=== PATIENT | male | born 1960 | race Caucasian/White ===

== ENCOUNTER 2020-09-21 14:48 | Outpatient (CLI) | payer BC, SELFPAY ==
--- NOTE | ~2020-09-21 | US_ITS ---
EXAMINATION: US carotid duplex BI EXAM DATE: 09/21/2020 15:32 INDICATION: Bilateral carotid bruits. TECHNIQUE: Grayscale, color and pulsed Doppler images of the cervical carotid arteries were obtained . The degree of vessel stenosis is placed in one of the following categories: normal, <50% stenosis, 50-69% stenosis, >=70% stenosis but less than near-occlusion, near-occlusion, or occlusion. Note that percent stenosis relative to normal distal artery lumen diameter is indirectly measured from velocit y measurements as described by Rc, et al. Radiology 2003; 229:[id number]. There is no prior study fo r comparison. FINDINGS: RIGHT SIDE: Right common carotid artery peak systolic velocity (PSV in cm/s): 163 Right bulb/internal carotid artery peak systolic velocity (PSV in cm/s): 85 Right internal carotid artery end diastolic velocity (EDV in cm/s): 26 Right ICA/CCA peak systolic ratio: 0.5 Right external carotid artery peak systolic velocity (PSV in cm/s): 121 Right vertebral artery antegrade flow: yes There is no focal plaque identified. LEFT SIDE: Left common carotid artery peak systolic velocity (PSV in cm/s): 173 Left bulb/internal carotid artery peak systolic velocity (PSV in cm/s): 85 Left internal carotid artery end diastolic velocity (EDV in cm/s): 31 Left ICA/CCA peak systolic ratio: 0.5 Left external carotid artery peak systolic velocity (PSV in cm/s): 128 Left vertebral artery antegrade flow: yes There is no focal plaque identified. IMPRESSION: 1. Normal right internal carotid artery. 2. Normal left internal carotid artery. > Reviewed, dictated and finalized at location G.
== END 2020-09-21 14:49 | disposition home or self-care (01) ==
LOC: ANHIMG 14:52
PROVIDERS: PCP Family Medicine; Visit Provider Internal Medicine Cardiovascular Disease
DX: R09.89 Other specified symptoms and signs involving the circulatory and respiratory systems (principal)
CPT/HCPCS: 93880

== ENCOUNTER → 2021-05-31 13:43 | Outpatient (CLI) | payer BC, SELFPAY ==
--- NOTE | ~2021-05-31 | XR_ITS ---
EXAMINATION: XR hand LT min 3V DATE: 05/31/2021 13:58 INDICATION: Left hand pain post fall one week prior TECHNIQUE: Posteroanterior, oblique and lateral views of the left hand were obtained. COMPARISON: None. FINDINGS: Diffuse osteopenia. Bone alignment is normal. No fracture. Mild to moderate polyarticular osteoarthri tis at the first carpometacarpal and multiple interphalangeal joints with distal predominance. Soft t issues are unremarkable. IMPRESSION: 1. Mild to moderate polyarticular osteoarthritis. No acute osseous abnormality. Reviewed, dictated and finalized at location A.
== END ==
PROVIDERS: PCP Nurse Practitioner Family; Visit Provider Nurse Practitioner
DX: M19.042 Primary osteoarthritis, left hand (principal)
CPT/HCPCS: 73130

== ENCOUNTER 2022-08-13 09:00 | Outpatient (CLI) | payer BC, SELFPAY ==
[2022-08-13 19:26] LABS: Basophils Percent Auto 0.9 % (0.2-1.2); Eosinophils Percent Auto 0.9 % (0-4.4); Hematocrit 40.7 % (42.0-52.0); Hemoglobin 13.1 g/dL (14.0-18.0); Immature Granulocyte Absolute 0.01 K/mm3 (0.00-0.031); Immature Granulocyte Percent A 0.2 % (0-0.5); Lymphocytes Absolute Auto 1.16 K/mm3 (0.9-3.2); Lymphocytes Percent Auto 26.8 % (18.3-44.2); Mean Corpuscular HGB Conc 32.2 g/dl (32-36); Mean Corpuscular Hemoglobin 30.7 pg (26-34); Mean Corpuscular Volume 95.3 fl (80-100); Mean Platelet Volume 10.8 fl (7.4-10.4); Monocytes Absolute Auto 0.4 K/mm3 (0.1-0.6); Neutrophils Absolute Auto 2.7 K/mm3 (1.3-6.7); Neutrophils Percent Auto 62.2 % (45.5-73.1); Platelet Count Result 165 k/mm3 (150-375); Red Blood Count 4.27 M/mm3 (4.6-6.20); Red Cell Distribution Width 12.7 % (11.5-14.5); White Blood Count 4.3 K/mm3 (4.5-10.0)
[2022-08-13 21:04] LABS: Alanine Aminotransferase 34 U/L (6-50); Albumin Level 4.3 g/dL (3.5-5.1); Anion Gap 5 mmol/L (8-16); Aspartate Amino Transferase 49 U/L (17-59); Blood Urea Nitrogen 23 mg/dL (9-20); Calcium 8.3 mg/dL (8.4-10.2); Carbon Dioxide 28 mmol/L (22-30); Chloride 104 mmol/L (98-107); Cholesterol 159 mg/dL (0-200); Estimated Glomerular Filt Rate > 60; Glucose 89 mg/dL (65-110); HDL Direct 38 mg/dL; Sodium 137 mmol/L (137-145); Triglycerides 66 mg/dL (<150)
[2022-08-13 21:05] LABS: Alkaline Phosphatase 53 U/L (38-126)
[2022-08-13 21:16] LABS: LDL Cholesterol Direct 100 mg/dL
[2022-08-13 21:36] LABS: Prostate Specific Antigen 4.9 ng/mL (< OR = 4.0)
[2022-08-13 21:39] LABS: Hemoglobin A1C 5.5 % (<5.7)
== END 2022-08-13 09:01 | disposition home or self-care (01) ==
LOC: ANHGOSHLAB 09:03
PROVIDERS: PCP Nurse Practitioner Family; Visit Provider Nurse Practitioner Family
DX: I10 Essential (primary) hypertension (principal); R97.20 Elevated prostate specific antigen [PSA]; Z12.5 Encounter for screening for malignant neoplasm of prostate; Z13.29 Encounter for screening for other suspected endocrine disorder; Z13.220 Encounter for screening for lipoid disorders
CPT/HCPCS: 36415; 80053; 80061; 83036; 84153; 84443; 85025; G0103

== ENCOUNTER 2023-08-17 08:49 | Outpatient (CLI) | payer BC, SELFPAY ==
[2023-08-17 14:57] LABS: Basophils Percent Auto 0.5 % (0.2-1.2); Eosinophils Absolute Auto 0.1 K/mm3 (0-0.3); Eosinophils Percent Auto 0.9 % (0-4.4); Hematocrit 43.1 % (42.0-52.0); Hemoglobin 13.7 g/dL (14.0-18.0); Immature Granulocyte Absolute 0.03 K/mm3 (0.00-0.031); Immature Granulocyte Percent A 0.5 % (0-0.5); Lymphocytes Absolute Auto 1.44 K/mm3 (0.9-3.2); Lymphocytes Percent Auto 26.3 % (18.3-44.2); Mean Corpuscular HGB Conc 31.8 g/dl (32-36); Mean Corpuscular Hemoglobin 30.4 pg (26-34); Mean Corpuscular Volume 95.6 fl (80-100); Mean Platelet Volume 10.6 fl (7.4-10.4); Monocytes Absolute Auto 0.6 K/mm3 (0.1-0.6); Neutrophils Absolute Auto 3.4 K/mm3 (1.3-6.7); Neutrophils Percent Auto 61.8 % (45.5-73.1); Platelet Count Result 181 k/mm3 (150-375); Red Blood Count 4.51 M/mm3 (4.6-6.20); Red Cell Distribution Width 13.1 % (11.5-14.5); White Blood Count 5.5 K/mm3 (4.5-10.0)
[2023-08-17 16:24] LABS: Alanine Aminotransferase 23 U/L (6-50); Albumin Level 4.4 g/dL (3.5-5.1); Alkaline Phosphatase 61 U/L (38-126); Anion Gap 5 mmol/L (4-12); Aspartate Amino Transferase 53 U/L (17-59); Bilirubin,Total 0.9 mg/dL (0.2-1.3); Blood Urea Nitrogen 19 mg/dL (9-20); Calcium 8.9 mg/dL (8.4-10.2); Carbon Dioxide 28 mmol/L (22-30); Chloride 104 mmol/L (98-107); Cholesterol 180 mg/dL (0-200); Estimated Glomerular Filt Rate > 60; Glucose 91 mg/dL (65-110); HDL Direct 47 mg/dL; Potassium 4.8 mmol/L (3.4-5.0); Sodium 137 mmol/L (137-145); Triglycerides 61 mg/dL (<150)
[2023-08-17 16:35] LABS: LDL Cholesterol Direct 109 mg/dL
== END 2023-08-17 08:50 | disposition home or self-care (01) ==
LOC: ANHGOSHLAB 08:51
PROVIDERS: PCP Nurse Practitioner Family; Visit Provider Student in an Organized Health Care Education/Training Program
DX: Z13.0 Encounter for screening for diseases of the blood and blood-forming organs and certain disorders involving the immune mechanism (principal); Z13.29 Encounter for screening for other suspected endocrine disorder; I10 Essential (primary) hypertension
CPT/HCPCS: 36415; 80053; 80061; 84443; 85025

== ENCOUNTER 2024-01-07 09:09 | Outpatient (CLI) | payer BC, SELFPAY ==
--- NOTE | ~2024-01-07 | XR_ITS ---
XR shoulder LT min 2V Ordering provider: Yasmani Fernandez APRN History: . M25.512 - Pain in left shoulder . Comparison: None. FINDINGS: BONES: No acute fracture or dislocation. JOINT SPACES: The acromioclavicular joint is normal. The glenohumeral joint is normal. SOFT TISSUES: Normal. IMPRESSION: No acute osseous abnormality left shoulder. Reviewed, dictated and finalized at location A.
== END 2024-01-07 09:10 | disposition home or self-care (01) ==
LOC: MICIMG 09:12
PROVIDERS: PCP Student in an Organized Health Care Education/Training Program; Visit Provider Student in an Organized Health Care Education/Training Program
DX: M25.512 Pain in left shoulder (principal)
CPT/HCPCS: 73030

== ENCOUNTER 2024-03-16 12:49 | Outpatient (CLI) | payer BC, SELFPAY ==
--- NOTE | ~2024-03-16 | MR_ITS ---
MRI of the left shoulder Technique: Axial proton-density fat-sat images, coronal proton density fat-sat and T2 fat-sat images, and sagittal T1-weighted and T2 fat-sat images were acquired. Clinical History: Rotator cuff tear Findings: There is moderate AC joint degenerative change, bony productive change of the distal clavic le and acromion. Coracoclavicular, coracoacromial, and coracohumeral ligaments appear intact. There are complete, full-thickness tears involving the entirety of the supraspinatus and infraspinatu s tendons. Humeral head is high riding. Subscapularis tendon appears to be intact, with severe tendin osis. Tendon of long head of the biceps is intact, with intra-articular tendinosis. No definite labral tear seen. Inferior glenohumeral ligament is intact. There are small glenohumeral joint effusion, with fluid pas sing through the rotator cuff defect into the subacromial/subdeltoid bursa. There is probable extensi ve mild to moderate chondral malacia the glenohumeral joint. No definite muscle atrophy or edema. Impression: Complete, full-thickness tears involving entire supraspinatus and infraspinatus tendons. No definite muscle atrophy or edema. High riding humeral head with moderate degenerative change at the AC joint. Reviewed, dictated and finalized at [facility]. [employer] Impression: Complete, full-thickness tears involving entire supraspinatus and infraspinatus tendons. No definite muscle atrophy or edema. High riding humeral head with moderate degenerative change at the AC joint.
== END 2024-03-16 12:50 | disposition home or self-care (01) ==
PROVIDERS: PCP Physician Assistant Surgical; Visit Provider Physician Assistant Surgical
DX: S46.812A Strain of other muscles, fascia and tendons at shoulder and upper arm level, left arm, initial encounter (principal); X58.XXXA Exposure to other specified factors, initial encounter; M19.012 Primary osteoarthritis, left shoulder; M89.8X2 Other specified disorders of bone, upper arm; M75.102 Unspecified rotator cuff tear or rupture of left shoulder, not specified as traumatic
CPT/HCPCS: 73221

== ENCOUNTER 2024-03-30 00:59 | Day surgery (SDC) | payer BC, SELFPAY ==
[2024-01-27 09:37] VITALS: BMI 25.0
[2024-03-15 11:33] VITALS: BMI 25.0
[2024-03-30] MEDS: LACTATED RINGERS 1,000 ML 150 ML IV CONT (11:05)
--- NOTE | 2024-03-30 11:11 | WPDANESEPPF ---
Anes - Initial Pre Proc Eval Procedure: Operation Date: 03/30/24 14:00 Proposed Procedures p Screening Colonoscopy - Sean Spencer MD Date/Time: 03/30/24 11:11 Surgeon: Sean Spencer MD Pre Op Diagnosis: neoplasm screening Patient Data Age: 64 Gender: M Height: 1.83 m Weight: 83.5 kg Allergies Allergy/AdvReac Type Severity Reaction Status Date / Time No Known Allergies Allergy Unknown Verified 03/30/24 10:57 Home Medications ?Medication ?Instructions ?Recorded ?Confirmed ?Type multivitamin with minerals (Daily 1 tablet PO DAILY 01/06/19 03/30/24 History Multivitamin-Minerals tablet) hydrocortisone 2.5 % topical cream 1 applic RECTAL DAILY PRN 10/24/20 03/21/24 Rx with perineal applicator hemorrhoids #30 grams finasteride 5 mg tablet 5 mg PO DAILY 06/11/21 03/30/24 History sildenafil 50 mg tablet (Viagra) 50 mg PO DAILY PRN sexual activity 08/13/21 03/21/24 Rx #30 tabs loratadine 10 mg tablet 10 mg PO DAILY 02/11/22 03/30/24 History aspirin 81 mg tablet,delayed 81 mg PO DAILY #90 tabs 06/09/22 03/30/24 Rx release (Adult Low Dose Aspirin) fluticasone propionate 50 1 spray intranasal DAILY #16 grams 11/14/22 03/30/24 Rx mcg/actuation nasal spray,suspension (Flonase Allergy Relief) lisinopril 40 mg tablet 40 mg PO DAILY #90 tabs 12/05/22 03/30/24 Rx diclofenac sodium 1 % topical gel 4 g topical BID PRN knee pain #100 08/17/23 03/21/24 Rx (Arthritis Pain (diclofenac)) grams albuterol sulfate 90 mcg/actuation 2 inh inhalation Q4H PRN Shortness 01/27/24 03/21/24 History aerosol inhaler Of Breath Or Wheezing Patient hx anesthesia problems: none Family hx anesthesia problems: none Results Review: All pre-operative results and documents have been reviewed as part of the pre-operative evaluation. [facility] Past Medical History Medical History Pulmonic stenosis Follows w/Dr Uppstrom Normal colonoscopy (~2013) hyperplastic polyp removed Amputation of right index finger (~2018) right 2nd finger at PIP joint d/t infection Wrist fracture History of anal fissures Elevated PSA neg biopsy Asthma Hypertension Surgical History Surgical History History of rhinoplasty (~1995) Family History Family History Father Hypertension Other Family history of cardiovascular disease Family history of emphysema Social History Social History Social History: Caffeine-coffee/tea Smoking status: Never smoker Alcohol intake: current Alcohol use details: socially Substance use: never Substance use type: does not use Do You Feel Safe in your Home?: Yes Lack of Transportation: No Lack of Food: Never True Current Housing: I Have Housing Concerned About Future Housing: No Difficulty Paying Gas/Electric Bills: No Difficulty Paying for Meds: No Currently Unemployed: No Education: Master's Degree or Higher Difficulty w/ Childcare or Family Care: No Living arrangements: with family Spiritual care concerns: No Anes - Eval Final PreProcedure Day of Procedure 03/30/24 11:11 Patient weight: normal Heart: regular rate and rhythm Lungs: clear to auscultation and normal air movement Airway: Mallampati scale class II Neurological: alert and oriented Last oral intake: >/= 8 hours ASA classification: III Emergent: no Anesthetic plan: proceed Anesthesia type and monitoring: general GIVS and standard monitoring Results Review: All pre-operative results and documents have been reviewed as part of the pre-operative evaluation. Informed Consent: The patient's anesthetic plan and its attendant risks and benefits were discussed with the patient/family/POA. Questions were solicited and answers provided to the satisfaction of the patient/family/POA.
--- NOTE | 2024-03-30 11:38 | PM.HPGS ---
History of Present Illness History of Present Illness Consent: Risks, benefits, and alternatives have been discussed and questions answered. Patient agrees to proceed with procedure. Chief complaint: neoplasm screening Narrative: Theo Mcdonald is a 64 year old male here for screening colonoscopy, last one 2013 Review of Systems Review of Systems: All systems reviewed & are unremarkable except as noted in HPI and below PMFSH Past Medical History Medical History Pulmonic stenosis Follows w/Dr Honeycutt Normal colonoscopy (~2013) hyperplastic polyp removed Amputation of right index finger (~2018) right 2nd finger at PIP joint d/t infection Wrist fracture History of anal fissures Elevated PSA neg biopsy Asthma Hypertension Surgical History Surgical History History of rhinoplasty (~1995) Family History Family History Father Hypertension Other Family history of cardiovascular disease Family history of emphysema Social History Social History Social History: Caffeine-coffee/tea Smoking status: Never smoker Alcohol intake: current Alcohol use details: socially Substance use: never Substance use type: does not use Do You Feel Safe in your Home?: Yes Lack of Transportation: No Lack of Food: Never True Current Housing: I Have Housing Concerned About Future Housing: No Difficulty Paying Gas/Electric Bills: No Difficulty Paying for Meds: No Currently Unemployed: No Education: Master's Degree or Higher Difficulty w/ Childcare or Family Care: No Living arrangements: with family Spiritual care concerns: No Meds Home Medications and Allergies Home Medications ?Medication ?Instructions ?Recorded ?Confirmed ?Type multivitamin with minerals (Daily 1 tablet PO DAILY 01/06/19 03/30/24 History Multivitamin-Minerals tablet) hydrocortisone 2.5 % topical cream 1 applic RECTAL DAILY PRN 10/24/20 03/21/24 Rx with perineal applicator hemorrhoids #30 grams finasteride 5 mg tablet 5 mg PO DAILY 06/11/21 03/30/24 History sildenafil 50 mg tablet (Viagra) 50 mg PO DAILY PRN sexual activity 08/13/21 03/21/24 Rx #30 tabs loratadine 10 mg tablet 10 mg PO DAILY 02/11/22 03/30/24 History aspirin 81 mg tablet,delayed 81 mg PO DAILY #90 tabs 06/09/22 03/30/24 Rx release (Adult Low Dose Aspirin) fluticasone propionate 50 1 spray intranasal DAILY #16 grams 11/14/22 03/30/24 Rx mcg/actuation nasal spray,suspension (Flonase Allergy Relief) lisinopril 40 mg tablet 40 mg PO DAILY #90 tabs 12/05/22 03/30/24 Rx diclofenac sodium 1 % topical gel 4 g topical BID PRN knee pain #100 08/17/23 03/21/24 Rx (Arthritis Pain (diclofenac)) grams albuterol sulfate 90 mcg/actuation 2 inh inhalation Q4H PRN Shortness 01/27/24 03/21/24 History aerosol inhaler Of Breath Or Wheezing Allergies Allergy/AdvReac Type Severity Reaction Status Date / Time No Known Allergies Allergy Unknown Verified 03/30/24 10:57 Exam Const: General: comfortable and no acute distress HENMT: Face/Nose/Sinus: Normal nares present Eyes: General: appearance normal, both eyes and all related structures Neck: Neck: no JVD Resp: Auscultation: clear to auscultation bilaterally Cardio: Rate: regular rate Rhythm: regular rhythm GI: Inspection: non-distended GI Palp: Yes Soft to palpation Skin: General skin exam: normal color Neuro: General: gait normal Speech: normal speech Extrem: General: normal to inspection Psych: Mental Status: mental status grossly normal Assessment and Plan Assessment and plan (1) Screening for colon cancer: Code(s): Z12.11 - Encounter for screening for malignant neoplasm of colon Status: Acute Assessment and Plan: colonoscopy
[2024-03-30 11:50] VITALS: BP 97/60; PULSE 80; RESP 16; O2SAT 97
[2024-03-30 12:00] VITALS: BP 101/65; PULSE 74; RESP 19; O2SAT 98
[2024-03-30 12:10] VITALS: BP 132/77; PULSE 74; RESP 17; O2SAT 99
[2024-03-30 12:20] VITALS: BP 108/65; PULSE 69; RESP 20; O2SAT 99
--- OUTSIDE RECORDS SUMMARY | 2024-03-31 20:59 | XMS_ITS ---
Author Organization [facility] Address [address] [place] [address] Care Team Providers Care Courtroom Clerk Name Role Phone Teeteemaría Solomon Primary Care Provider Chanda Arriaga Unavailable [phone] Allergies No Known Allergies Results Component Value Reference Range Notes Spirometry Reviewed date:03/29/2024 11:27:31 AM Interpretation: Performing Lab: Notes/Report: SpiroPreBronchodilator_FVC 3.86 SpiroPostBronchodilator_FEF25_75 0 SpiroPreBronchodilator_FEF25_75 2.23 SpiroPreBronchodilator_FEV1 2.86 SpiroPrecentPredictionPost_FEF25_75 0 SpiroPrecentPredictionPost_FEV1 0 SpiroPrecentPredictionPost_FEV1_OVER_FVC 0 SpiroPrecentPredictionPost_FVC 0 SpiroPrecentPredictionPre_FEF25_75 66.4 SpiroPrecentPredictionPre_FEV1 75.9 SpiroPrecentPredictionPre_FEV1_OVER_FVC 96.8 SpiroPrecentPredictionPre_FVC 78.6 SpiroPredicted_FEF25_75 3.36 SpiroPreBronchodilator_FEV1_OVER_FVC 74.24 SpiroPreBronchodilator_PEF 7.19 SpiroPostBronchodilator_FVC 0 SpiroPostBronchodilator_FEV1 0 SpiroPostBronchodilator_FEV1_OVER_FVC 0 SpiroPostBronchodilator_PEF 0 SpiroPredicted_FVC 4.91 SpiroPredicted_FEV1 3.77 SpiroPredicted_FEV1_OVER_FVC 76.68 SpiroPredicted_PEF 8.89 REASON FOR VISIT Asthma follow-up - recent flare, but overall well controlled with Breo, Allergic rhinitis follow-up- improvement with SCIT, Flonase and cetirizine, Medications Medication SIG (Take, Route, Frequency, Duration) Notes Start Date End Date Status Breo Ellipta 200 MCG-25 MCG/INH 1 PUFF(S) INHALED ONCE A DAY for 90 days *Please review and pick correct strength-formula tion from [employer] options. If intended option is not shown, discontinue and re-order from Quick Search* Active SIT (TRADITIONAL) variable per schedule SC per schedule Active AUVI -Q 0.3 mg 0.3 mg intramuscularly once for 1 dose(s) Active CLARITIN 10 mg 1 tab(s) orally once a day Active OLOPATADINE OPHTHALMIC 0.1% place 1 drop into affected eye(s) twice daily in each affected eye Qday for 30 days Active Amoxicillin-Pot Clavulanate 875-125 MG 1 tablet Orally every 12 hrs for 7 days 09/29/2023 Not-Taking Triamcinolone Acetonide 0.1 % 1 application Externally Twice a day for 30 days 03/29/2024 Active Flonase Allergy Relief 50 MCG/ACT 2 sprays Nasally Once a day for 90 days 09/29/2023 Not-Taking Triamcinolone Acetonide 0.1 % APPLY TO AFFECTED AREA TOPICALLY 3 TIMES A DAY 90 DAYS for 30 Not-Taking Auvi-Q 0.3 MG/0.3ML 0.3 mg intramuscularly once for 1 dose(s) Active Flonase Allergy Relief 50 MCG/ACT 2 spray(s) intranasally once a day for 90 days Active Claritin 10 MG 1 tab(s) orally once a day Active PROAIR HFA 90 MCG/INH 2 PUFF(S) INHALED Q4-6 HOURS, PRN AND PER THE ASTHMA ACTION PLAN for 30 DAY(S) *Please review for potential replacement for e-prescription and drug interaction check* Not-Taking Lisinopril 20 MG 1 tab(s) orally once a day for 30 day(s) Active Flonase Allergy Relief 50 MCG/ACT 2 spray(s) intranasally once a day for 90 days Not-Taking Albuterol Sulfate HFA 108 (90 Base) MCG/ACT 2 puffs as needed Inhalation every 4 hrs for 30 days Active Triamcinolone Acetonide 0.1 % 1 giovanna applied topically 3 times a day for 90 days Active Azelastine HCl 137 MCG/SPRAY 2 sprays in each nostril Nasally Twice a day for 30 days Active Olopatadine HCl 0.1 % place 1 drop into affected eye(s) twice daily in each affected eye Qday for 30 days Active TRIAMCINOLONE ACETONIDE TOPICAL 0.1% 1 giovanna applied topically 3 times a day for 90 days Not-Taking Social History Tobacco Use: Social History Observation Description Date Details (start date - stop date) Never Smoker NA - NA Smoking Smart Form: Question Answer Notes Are you a: never smoker Tobacco Control (Standard) Question Answer Notes Tobacco use: Nonsmoker Vital Signs Blood pressure systolic 143 mm Hg 03/29/19 25 Blood pressure diastolic 74 mm Hg 025 Oximetry 100 % 03/29/2024 Height 72 in 03/29/2024 Weight 179.2 lbs 03/29/2024 BMI 24.3 kg/m2 03/29/2024 Encounters Encounter Location Date Provider Diagnosis [facility] [address] [address] 03/29/2024 Chanda Singh Mild persistent asthma, uncomplicated J45.30 ; Allergic rhinitis due to pollen J30.1 ; Other chronic allergic conjunctivitis H10.45 ; Allergic rhinitis due to animal (cat) (dog) hair and dander J30.81 ; Other allergic rhinitis J30.89 and Unspecified contact dermatitis due to plants, except food L25.5 Assessments Encounter Date Diagnosis (ICD Code) Assessment Notes Treatment Notes Treatment Clinical Notes Section Notes 03/29/2024 Mild persistent asthma, uncomplicated (ICD-10 - J45.30) Theo appears to have allergen induced asthma which also flares while sick. ACT 23 and well controlled with Breo outsie of recent flare. Spirometry today is improved from prior spirometry but shows signs of obstruction. Full PFTs 09/2016 showed obstruction and non significant improvement post bronchodilator. Continue Breo and prn albuterol. 03/29/2024 Allergic rhinitis due to pollen (ICD-10 - J30.1) Theo clearly suffers from atopic disease based upon history and our prior skin testing. Accordingly, we have introduced a new, aggressive medication regimen, discussed nasal washes and allergy-specific avoidance measures. He is tolerating SCIT well without large local or systemic symptoms and has overall seen much improvement in nasal congestion, rhinorrhea, and frequency of sinusitis. He has completed over 5 years of therapy and would like to discontinue since vials are now complete. 03/29/2024 Other chronic allergic conjunctivitis (ICD-10 - H10.45) Given ocular signs and symptoms, I strongly encouraged allergy avoidance measures, medications including intraocular antihistamine/mas t cell stabilizer, PRN 03/29/2024 Allergic rhinitis due to animal (cat) (dog) hair and dander (ICD-10 - J30.81) 03/29/2024 Other allergic rhinitis (ICD-10 - J30.89) 03/29/2024 Unspecified contact dermatitis due to plants, except food (ICD-10 - L25.5) Theo has a history of frequent poison shandra in the summer due to yard work. Continue prn triamcinolone 03/29/2024 Other Plan Of Treatment Medication Medication Name Sig Start Date Stop Date Notes Breo Ellipta 200 MCG-25 MCG/INH 1 PUFF(S) INHALED ONCE A DAY for 90 days *Please review and pick correct strength-formulatio n from [employer] options. If intended option is not shown, discontinue and re-order from Quick Search* SIT (TRADITIONAL) variable per schedule SC per schedule AUVI -Q 0.3 mg 0.3 mg intramuscular ly once for 1 dose(s) CLARITIN 10 mg 1 tab(s) orally once a day OLOPATADINE OPHTHALMIC 0.1% place 1 drop into affected eye(s) twice daily in each affected eye Qday for 30 days Triamcinolone Acetonide 0.1 % 1 application Externally Twice a day for 30 days 03/29/2024 Albuterol Sulfate HFA 108 (90 Base) MCG/ACT 2 puffs as needed Inhalation every 4 hrs for 30 days Azelastine HCl 137 MCG/SPRAY 2 sprays in each nostril Nasally Twice a day for 30 days Treatment Notes Assessment Notes Mild persistent asthma, uncomplicated Theo appears to have allergen induced asthma which also flares while sick. ACT 23 and well controlled with Breo outsie of recent flare. Spirometry today is improved from prior spirometry but shows signs of obstruction. Full PFTs 09/2016 showed obstruction and non significant improvement post bronchodilator. Continue Breo and prn albuterol. Allergic rhinitis due to pollen Theo clearly suffers from atopic disease based upon history and our prior skin testing. Accordingly, we have introduced a new, aggressive medication regimen, discussed nasal washes and allergy-specific avoidance measures. He is tolerating SCIT well without large local or systemic symptoms and has overall seen much improvement in nasal congestion, rhinorrhea, and frequency of sinusitis. He has completed over 5 years of therapy and would like to discontinue since vials are now complete. Other chronic allergic conjunctivitis Given ocular signs and symptoms, I strongly encouraged allergy avoidance measures, medications including intraocular antihistamine/mast cell stabilizer, PRN Unspecified contact dermatit is due to plants, except food Theo has a history of frequent poison shandra in the summer due to yard work. Continue prn triamcinolone Next Appt Details Follow Up: 6 Months, Reason: Spirometry/Flow Volume Loop Provider Name:Chanda mccarty, 09/20/2024 10:15:00 AM, [address] [facility], [address], [address], Procedure Notes * Category Sub-Category Detail Notes SCIT Traditional Aeroallergen Schedul e Administration:: Full dosing administered per SOP and AAIC's titration schedule and/or specific instructions as outlined on the patient's shot record; see attached for specifics re: content, concentration, volume and location of injection(s). Progress Notes * NIKITheo WDOB: [birth year] (64 yo M)Acc No.[id number]:03/29/2024 Progress Notes Patient:?Theo PRINCE W Provider:?Chanda Singh MD :1960???Age:64 Y???Sex:Male Onofre e:03/29/2024 [address] Pcp:Solomon Mendez Subjective: * Chief Complaints: * ???Asthma follow-up - recent flare, but overall well controlled with BreoAllergic rhinitis follow-up - improvement with SCIT, Flonase and cetirizine, * HPI: ???*Introduction:?I had the pleasure of seeing?Theo Prince, a 63 y/o with history of irregular heart rate, allergic rhinitis on SCIT and recurrent sinusitis presenting for f/u evaluation of asthma. He was last seen 09-29-2023. ACT 23 and reports asthma is under good control.? He continues Breo and rare use of albuterol. Asthma flared after returning form [facility] earlier this month but otherwise has been under good control.? He required steroids with the flare.? He would like to stop immunotherapy since has completed over 5 years of therapy.?? He started Breo Spring 2021 due to a lingering cough after Covid.? No night symptoms. Good exercise tolerance.? He reports overall improvment in congestion and rhinorrhea with SCIT. He feels that asthma improved after starting SCIT. Theo has a long history of allergic rhinitis diagnosed in childhood. In 1992, sinus surgery was performed by Dr. Akash Kirkland in [place] with repair of deviated septum. Prior to starting SCIT he would develop sinusitis about 3 times yearly and normally requires 3 weeks of antibiotics. No decrease in sense of smell. Theo frequently develops poison shandra when performing yard work a few times yearly.Today, he reports no fevers, chills, night sweats or other constitutional symptoms, ?. Location: chest. Onset: intermittent. Severity: moderate. Nature: cough. Aggravated by: allergen exposure. Relieved by: JONAS, Breo.? Associated Symptoms: shortness of breath.? * ROS:?ALLERGY:?Positive?per the HPI and history, otherwise unremarkable.?SPECIAL SENSES:?Positve for?per the HPI and history, otherwise unremarkable.?CONSTITUTIONAL:?Positive for?per the HPI and history, otherwise unremakable.?ENT:?Positive?per the HPI and history, otherwise unremarkable.?RESPIRATORY:?Positive for?per the HPI and history, otherwise unremarkable.?OPHTHALMOLOGY:?Positive for?per the HPI and history, otherwise unremarkable.?ENDOCRINOLOGY:?Positive for?none.?CARDIOLOGY:?Positive for?none.?GASTROENTEROLOGY:?Positive for?none.?UROLOGY:?Positive for?none.?DERMATOLOGY:?Positive for?per the HPI and history, otherwise unremarkable.?NEUROLOGY:?Positive for?none.?HEMATOLOGY/LYMPH:?Positive for?none.?MUSCULOSKELETAL:?Positive for?none.?PSYCHOLOGY:?Positive for?none.?MALE REPRODUCTIVE:?Positive for?none.?FEMALE REPRODUCTIVE:?Positive for?N/A.?All other review of systems per the HPI and history, othwise unremarkable. * Medical History:? * Surgical History:?Broken wri st 2004Sinus Surgery 1992finger surgery 2013 * Hospitalization/Major Diagno stic Procedure:?Denies Past Hospitalization * Family History:?Father: essie marie, diagnosed with Hypertension.?Mother: .?1 sister(s) . .? * Social History:?Marital Status?.?Children?Number of children:?2 ???Alcohol Screening?wine,one or twice week.?Caffeine: yes, daily. 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 exposure: no. ???Travel outside [place]: no. ???Tobacco Control (Standard)?Tobacco use:?Nonsmoker * Medications:?TakingOlopatadi ne HCl 0.1 % Solution place 1 drop into affected eye(s) twice daily in each affected eye Qday Triamcinolone Acetonide 0.1 % Cream 1 giovanna applied topically 3 times a day Flonase Allergy Relief 50 MCG/ACT Suspension 2 spray(s) intranasally once a day Claritin 10 MG Tablet 1 tab(s) orally once a day Lisinopril 20 MG Tablet 1 tab(s) orally once a day Auvi-Q 0.3 MG/0.3ML Solution Auto-injector 0.3 mg intramuscularly once Breo Ellipta 200 MCG-25 MCG/INH POWDER 1 PUFF(S) INHALED ONCE A DAY , Notes to Pharmacist: *Please review and pick correct strength-formulation from [employer] options. If intended option is not shown, discontinue and re-order from Quick Search*Azelastine HCl 137 MCG/SPRAY Solution 2 sprays in each nostril Nasally Twice a day Albuterol Sulfate HFA 108 (90 Base) MCG/ACT Aerosol Solution 2 puffs as needed Inhalation every 4 hrs SIT (TRADITIONAL) variable see record per schedule SC per schedule Taking Olopatadine HCl 0.1 % Solution place 1 drop into affected eye(s) twice daily in each affected eye Qday Taking Triamcinolone Acetonide 0.1 % Cream 1 giovanna applied topically 3 times a day Taking Flonase Allergy Relief 50 MCG/ACT Suspension 2 spray(s) intranasally once a day Taking Claritin 10 MG Tablet 1 tab(s) orally once a day Taking Lisinopril 20 MG Tablet 1 tab(s) orally once a day Taking Auvi-Q 0.3 MG/0.3ML Solution Auto- injector 0.3 mg intramuscularly once Taking Breo Ellipta 200 MCG-25 MCG/INH POWDER 1 PUFF(S) INHALED ONCE A DAY , Notes to Pharmacist: *Please review and pick correct strength-formulation from [email or web address] options. If intended option is not shown, discontinue and re-order from Quick Search*Taking Azelastine HCl 137 MCG/SPRAY Solution 2 sprays in each nostril Nasally Twice a day Taking Albuterol Sulfate HFA 108 (90 Base) MCG/ACT Aerosol Solution 2 puffs as needed Inhalation every 4 hrs Taking SIT (TRADITIONAL) variable see record per schedule SC per schedule Not-Taking/PRNOLOPATADINE OPHTHALMIC 0.1% solution place 1 drop into affected eye(s) twice daily in each affected eye Qday TRIAMCINOLONE ACETONIDE TOPICAL 0.1% cream 1 giovanna applied topically 3 times a day AUVI -Q 0.3 mg kit 0.3 mg intramuscularly once CLARITIN 10 mg tablet 1 tab(s) orally once a day PROAIR HFA 90 MCG/INH AEROSOL 2 PUFF(S) INHALED Q4-6 HOURS, PRN AND PER THE ASTHMA ACTION PLAN , Notes to Pharmacist: *Please review for potential replacement for e-prescription and drug interaction check*Flonase Allergy Relief 50 MCG/ACT Suspension 2 spray(s) intranasally once a day Triamcinolone Acetonide 0.1 % Cream APPLY TO AFFECTED AREA TOPICALLY 3 TIMES A DAY 90 DAYS Flonase Allergy Relief 50 MCG/ACT Suspension 2 sprays Nasally Once a day Amoxicillin-Pot Clavulanate 875-125 MG Tablet 1 tablet Orally every 12 hrs Medication List reviewed and reconciled with the patientNot-Taking/PRN OLOPATADINE OPHTHALMIC 0.1% solution place 1 drop into affected eye(s) twice daily in each affected eye Qday Not-Taking/PRN TRIAMCINOLONE ACETONIDE TOPICAL 0.1% cream 1 giovanna applied topically 3 times a day Not-Taking/PRN AUVI -Q 0.3 mg kit 0.3 mg intramuscularly once Not-Taking/PRN CLARITIN 10 mg tablet 1 tab(s) orally once a day Not-Taking/PRN PROAIR HFA 90 MCG/INH AEROSOL 2 PUFF(S) INHALED Q4-6 HOURS, PRN AND PER THE ASTHMA ACTION PLAN , Notes to Pharmacist: *Please review for potential replacement for e-prescription and drug interaction check*Not-Taking/PRN Flonase Allergy Relief 50 MCG/ACT Suspension 2 spray(s) intranasally once a day Not-Taking/PRN Triamcinolone Acetonide 0.1 % Cream APPLY TO AFFECTED AREA TOPICALLY 3 TIMES A DAY 90 DAYS Not-Taking/PRN Flonase Allergy Relief 50 MCG/ACT Suspension 2 sprays Nasally Once a day Not-Taking/PRN Amoxicillin-Pot Clavulanate 875-125 MG Tablet 1 tablet Orally every 12 hrs Medication List reviewed and reconciled with the patient * Allergies:?N.K.D.A.no[Allerg ies Verified] Objective: * Vitals:?BP:143/74mm Hg, HR:1 05/min, Pulse Oximetry:100%, ACT:23, Ht: 72 in, Wt: 179.2 lbs, BMI:24.3Index. * Examination: ???General examination: ?General appearance:?pleasant, well-developed, well-nourished.?HEENT:?conjunctiva are clear bilaterally, no tenderness to palpation of the sinuses, TMs without evidence of acute infection, clear drainage, no polyps noted, no septal perforation, posterior oropharynx is clear, no tongue swelling, and uvula is midline.?Oral cavity:?normal, no lesions.?Neck, thyroid :?supple, non-tender, no anterior cervical lymphadenopathy.?Breasts :?not performed.?Heart:?RRR, S1-S2, no murmurs, no rubs, no gallops.?Lungs:?clear to auscultation and percussion in all lung blankenship, no wheezes or crackles.?Neurologic exam:?unremarkable.?Skin:?normal, no rash.?Peripheral pulses:?normal (2+) bilaterally.?Back:?normal.?Extremities:?normal ROM, no clubbing, no cyanosis, no edema.?Genitalia:?not performed.? Assessment: * Assessment: 1.?Mild persistent asthma, u ncomplicated - J45.30 (Primary)???2.?Allergic rhinitis due to pollen - J30.1???3.?Other chronic allergic conjunctivitis - H10.45???4.?Allergic rhinitis due to animal (cat) (dog) hair and dander - J30.81 ??5.?Other allergic rhinitis - J30.89???6.?Unspecified contact dermatitis due to plants, except food - L25.5??? Plan: * Treatment: ? Value Reference Range ?SpiroPreBronchodilator_FVC 3.86 * ?SpiroPreBronchodilator_FEF25_75 2.23 * ?SpiroPreBronchodilator_FEV1 2.86 * ?SpiroPrecentPredictionPre_FEF25_75 66.4 * ?SpiroPrecentPredictionPre_FEV1 75.9 * ?SpiroPrecentPredictionPre_FEV1_OVER_FVC 96.8 * ?SpiroPrecentPredictionPre_FVC 78.6 * ?SpiroPredicted_FEF25_75 3.36 * ?SpiroPreBronchodilator_FEV1_OVER_FVC 74.24 * ?SpiroPreBronchodilator_PEF 7.19 * ?SpiroPredicted_FVC 4.91 * ?SpiroPredicted_FEV1 3.77 * ?SpiroPredicted_FEV1_OVER_FVC 76.68 * ?SpiroPredicted_PEF 8.89 * FEV1 76% and reduced FVC. FV L normal. Impression: obstruction with possible restriction Notes:Theo appears to have allergen induced asthma which also flares while sick. ACT 23 and well controlled with Breo outsie of recent flare. Spirometry today is improved from prior spirometry but shows signs of obstruction. Full PFTs 09/2016 showed obstruction and non significant improvement post b ronchodilator. Continue Breo and prn albuterol. ??2.?Allergic rhinitis due to pollen? Continue SIT (TRADITIONAL) see record, variable, per schedule, SC, per schedule;?Continue AUVI-Q kit, 0.3 mg, 0.3 mg, intramuscularly, once, 1 dose(s), 1, Refills 0;?Continue CLARITIN tablet, 10 mg, 1 tab(s), orally, once a day;?Continue Azelastine HCl Solution, 137 MCG/SPRAY, 2 sprays in each nostril, Nasally, Twice a day, 30 days, 1, Refills 5.?? Notes:Theo clearly suffers from atopic disease based upon history and our prior skin testing. Accordingly, we have introduced a new, aggressive medication regimen, discussed nasal washes and allergy-specific avoidance measures. He is tolerating SCIT well without large local or systemic symptoms and has overall seen much improvement in nasal congestion, rhinorrhea, and frequency of sinusitis. He has completed over 5 years of therapy and would like to discontinue since vials are now complete. ?3.?Other chronic allergic conjunctivitis? Continue OLOPATADINE OPHTHALMIC solution, 0.1%, place 1 drop into affected eye(s) twice daily, in each affected eye, Qday, 30 days, 1, Refills 1.?? Notes:Given ocular signs and symptoms, I strongly encouraged allergy avoidance measures, medications including intraocular antihistamine/mast cell stabilizer, PRN ??4.?Unspecified contact dermatitis due to plants, except food? Refill Triamcinolone Acetonide Ointment, 0.1 %, 1 application, Externally, Twice a day, 30 days, 15, Refills 0.?? Notes:Theo has a history of frequent poison shandra in the summer due to yard work. Continue prn triamcinolone?? * Procedures:?SCIT:?Traditional Aeroallergen Schedule ?Administration:?Full dosing administered per SOP and AAIC's titration schedule and/or specific instructions as outlined on the patient's shot record; see attached for specifics re: content, concentration, volume and location of injection(s).? * Procedure Codes:?82353 PT-FO CUSED [facility] RISK [id number] DOC MEDS VERIFIED W/PT OR PT99882 IMMUNOTHERAPY [id number] RESPIRATORY FLOW VOLUME LOOP * Preventive Medicine:? ??Counseling:?Diet?as tolerated.?Exercise?Continue activity as usual.?Medication instruction:?Watch for side effects of prescribed medications.?Education:?Our staff spent an additional 30 minutes in direct contact with the patient educating them on their current diagnoses and proper treatment and prevention of symptoms and the proper use of medications.?Patient education material?sent to portal??Yes ?Care goal follow up plan?BMI management provided?Yes ?Above Normal BMI Follow-up?Dietary management education, guidance, and counseling * Follow Up:?6 Months (Reason: Spirometry/Flow Volume Loop) * Billing Information: * Visit Code:? 34796 Office Visit, Est Pt., Level 4. Modifiers: 25 * Procedure Codes:? 28792 PT-FOCUSED HLTH RISK ASSMT. G8427 DOC MEDS VERIFIED W/[place]. [address] IMMUNOTHERAPY INJECTIONS. A4617 Mouthpiece. 49345 RESPIRATORY FLOW VOLUME LOOP. * CHOOL ASSISTANT DIRECTOR Sign off status: Completed true * Provider:?Chanda Singh MD Date:?03/10 Generated for Margareti john/Tammy/eTransmitting on:?03/31/2024 08:59 PM PRESCHOOL ASSISTANT DIRECTOR History and Physical Notes * HPI (History of Present Illness) Category Sub-Category Detail Notes Category Not es Dermatology Gastroenterology Constitutional Ophthalmology Ears Nose *Introduction I had the pleasure o f seeing Theo Prince, a 63 y/o with history of irregular heart rate, allergic rhinitis on SCIT and recurrent sinusitis presenting for f/u evaluation of asthma. He was last seen 09-29-2023. ACT 23 and reports asthma is under good control. He continues Breo and rare use of albuterol. Asthma flared after returning form [place] earlier this month but otherwise has been under good control. He required steroids with the flare. He would like to stop immunotherapy since has completed over 5 years of therapy. He started Breo Spring 2021 due to a lingering cough after Covid. No night symptoms. Good exercise tolerance. He reports overall improvment in congestion and rhinorrhea with SCIT. He feels that asthma improved after starting SCIT. Theo has a long history of allergic rhinitis diagnosed in childhood. In 1992, sinus surgery was performed by Dr. Akash Kirkland in [place] with repair of deviated septum. Prior to starting SCIT he would develop sinusitis about 3 times yearly and normally requires 3 weeks of antibiotics. No decrease in sense of smell. Theo frequently develops poison shandra when performing yard work a few times yearly. Today, he reports no fevers, chills, night sweats or other constitutional symptoms, . Location: chest. Onset: intermittent. Severity: moderate. Nature: cough. Aggravated by: allergen exposure. Relieved by: JONAS, Breo. Associated Symptoms: shortness of breath Examination Category Sub-Category Detail Notes Category Not es General examination HEENT: conjunctiva are clear bilaterally, no tenderness to palpation of the sinuses, TMs without evidence of acute infection, clear drainage, no polyps noted, no septal perforation, posterior oropharynx is clear, no tongue swelling, and uvula is midline Neck, thyroid : supple, non-tender, no anterior cervical lymphadenopathy Heart: RRR, S1-S2, no murmu rs, no rubs, no gallops Lungs: clear to auscultatio n and percussion in all lung blankenship, no wheezes or crackles Abdomen: Extremities: normal ROM, no clubb ing, no cyanosis, no edema General appearance: pleasant, well-devel oped, well-nourished Skin: normal, no rash Neurologic exam: unremarkable Oral cavity: normal, no lesions Breasts : not performed Peripheral pulses: normal (2+) bilatera lly Back: normal Genitalia: not performed
--- OUTSIDE RECORDS SUMMARY | 2024-03-31 20:59 | XMS_ITS ---
Author Organization [facility] Address [address] [place] [address] Care Team Providers Care Drawbridge Operator Name Role Phone Teeteemaría Sandraruthann Primary Care Provider Unavailtameka e Chanda Singh Unavailable [phone] REASON FOR VISIT SCIT - Traditional Schedule Allergy immunotherapy Medications Medication SIG (Take, Route, Frequency, Duration) Notes Start Date End Date Status SIT (TRADITIONAL) variable per schedule SC per schedule Active Encounters Encounter Location Date Provider Diagnosis [facility] [address] [facility] [address] [place] [address] 02/29/2024 Chanda Singh Allergic rhinitis du e to pollen J30.1 ; Allergic rhinitis due to animal (cat) (dog) hair and dander J30.81 ; Other allergic rhinitis J30.89 and Other chronic allergic conjunctivitis H10.45 Assessments Encounter Date Diagnosis (ICD Code) Assessment Notes Treatment Notes Treatment Clinical Notes Section Notes 02/29/2024 Allergic rhinitis due to pollen (ICD-10 - J30.1) 02/29/2024 Allergic rhinitis due to animal (cat) (dog) hair and dander (ICD-10 - J30.81) 02/29/2024 Other allergic rhinitis (ICD-10 - J30.89) 02/29/2024 Other chronic allergic conjunctivitis (ICD-10 - H10.45) Plan Of Treatment Medication Medication Name Sig Start Date Stop Date Notes SIT (TRADITIONAL) variable per schedule SC per schedule Next Appt Details Follow Up: 1 Week, Reason: Provider Name:Chanda mccarty, 09/20/2024 10:15:00 AM, [address] [facility], [address], [place], [address], Progress Notes * Theo PRINCE WDOB: 8 (64 yo M)Acc No.[id number]:02/29/2024 SCIT-Aeroallergen Patient:?NIKITheo W Provider:?Chanda Singh MD :1960???Age:64 Y???Sex:Male Onofre e:02/29/2024 Address:[address] [place] [address] [facility] Pcp:Solomon Mendez Subjective: * Chief Complaints: * ???SCIT - Traditional [place] Allergy immunotherapy * HPI: ???*Introduction:? The patient is here for scheduled immunotherapy. Please see the attached specialty form regarding the specifics of the administration of these vaccines. As per our protocol, the must undergo a screening health questionnaire (medication changes, reaction(s) to last immunotherapy dose(s), current health status, ACT (if appropriate), self-injectable epinephrine on patient(?) and peak flow (if appropriate)). Also, the patient must wait in our office for 30 minutes after receiving the vaccine(s). Furthermore, every patient must have an epinephrine pen (self-injectable) with them at the time of administration--and carry if for the following 1.5 hours after they leave our office. The patient must also have taken their antihistamine the day of the injection, preferably 2 hours prior. The consent form for SCIT (subcutaneous immunotherapy) is on file. * Medical History:? * Surgical History:? * Hospitalization/Major Diagno stic Procedure:? * Medications:? Objective: * Vitals:? Assessment: * Assessment: 1.?Allergic rhinitis due to pollen - J30.1 (Primary)???2.?Allergic rhinitis due to animal (cat) (dog) hair and dander - J30.81???3.?Other allergic rhinitis - J30.89???4.?Other chronic allergic conjunctivitis - H10.45??? Plan: * Treatment: * Procedure Codes:?08103 IMMUN OTHERAPY INJECTIONS * Follow Up:?1 Week * Billing Information: * Visit Code:? * Procedure Codes:? 70015 IMMUNOTHERAPY INJECTIONS. * R HELPER Sign off status: Completed true * Provider:?Chanda Singh MD Date:?02/07 Generated for Jayne lopez/Tammy/Theaitting on:?03/31/2024 08:59 PM MOVER HELPER History and Physical Notes * HPI (History of Present Illness) Category Sub-Category Detail Notes Category Not es *Introduction The patient is here for scheduled immunotherapy. Please see the attached specialty form regarding the specifics of the administration of these vaccines. As per our protocol, the must undergo a screening health questionnaire (medication changes, reaction(s) to last immunotherapy dose(s), current health status, ACT (if appropriate), self-injectable epinephrine on patient(?) and peak flow (if appropriate)). Also, the patient must wait in our office for 30 minutes after receiving the vaccine(s). Furthermore, every patient must have an epinephrine pen (self-injectable) with them at the time of administration--and carry if for the following 1.5 hours after they leave our office. The patient must also have taken their antihistamine the day of the injection, preferably 2 hours prior. The consent form for SCIT (subcutaneous immunotherapy) is on file.
--- OUTSIDE RECORDS SUMMARY | 2024-03-31 20:59 | XMS_ITS ---
Author Organization [facility] Address [address] [place] [address] Care Team Providers Care Information Technology Coordinator Name Role Phone Teeteemaría Sandraruthann Primary Care Provider Unavailtameka e Chanda Singh Unavailable [phone] REASON FOR VISIT SCIT - Traditional Schedule Allergy immunotherapy Medications Medication SIG (Take, Route, Frequency, Duration) Notes Start Date End Date Status SIT (TRADITIONAL) variable per schedule SC per schedule Active Encounters Encounter Location Date Provider Diagnosis [facility] [address] [facility] [address] [place] [address] 02/01/2024 Chanda Singh Allergic rhinitis du e to pollen J30.1 ; Allergic rhinitis due to animal (cat) (dog) hair and dander J30.81 ; Other allergic rhinitis J30.89 and Other chronic allergic conjunctivitis H10.45 Assessments Encounter Date Diagnosis (ICD Code) Assessment Notes Treatment Notes Treatment Clinical Notes Section Notes 02/01/2024 Allergic rhinitis due to pollen (ICD-10 - J30.1) 02/01/2024 Allergic rhinitis due to animal (cat) (dog) hair and dander (ICD-10 - J30.81) 02/01/2024 Other allergic rhinitis (ICD-10 - J30.89) 02/01/2024 Other chronic allergic conjunctivitis (ICD-10 - H10.45) Plan Of Treatment Medication Medication Name Sig Start Date Stop Date Notes SIT (TRADITIONAL) variable per schedule SC per schedule Next Appt Details Follow Up: 1 Week, Reason: Provider Name:Chanda mccarty, 09/20/2024 10:15:00 AM, [address] [facility], [address], [place], [address], Progress Notes * Theo PRINCE WDOB: 8 (63 yo M)Acc No.[id number]:02/01/2024 SCIT-Aeroallergen Patient:?NIKITheo W Provider:?Chanda Singh MD :1960???Age:63 Y???Sex:Male Onofre e:02/01/2024 Address:[address] [place] [address] [facility] Pcp:Solomon Mendez Subjective: * Chief Complaints: [...] - H10.45??? Plan: * Treatment: * Procedure Codes:?65167 IMMUN OTHERAPY INJECTIONS * Follow Up:?1 Week * Billing Information: * Visit Code:? * Procedure Codes:? 00786 IMMUNOTHERAPY INJECTIONS. * STORAGE SUPERVISOR Sign off status: Completed true * Provider:?Chanda Singh MD Date:?01/08 Generated for Jayne lopez/Tammy/Yvette on:?03/31/2024 08:59 PM TANK STORAGE SUPERVISOR History and Physical Notes * HPI (History [...]
--- OUTSIDE RECORDS SUMMARY | 2024-03-31 21:00 | XMS_ITS | Clinical Summary ---
Author Organization [facility] [address] Address [address] [place] [address] Care Team Providers Care Nut Sifter Name Role Phone Beba Torres NP Primary Care Provider [phone] Allergies Active Allergy Reactions Criticality Noted Date Comments Grass Pollen Eye irritation,Sneezing Low 06/09/2019 Medications sildenafil (VIAGRA) 50 mg tablet take 1 tablet by oral route every day as needed approximately 1 hour before sexual activity 0 0 06/01/19 16 Active fluticasone (FLONASE) 50 mcg/actuation nasal spray inhale 1 spray by intranasal route every day in each nostril 0 spray 0 06/01/19 16 Active Additional Information Patient taking differently: each nostril As needed, Indications: Allergic Rhinitis, Informant: Self, Reported on 03/17/2024 loratadine (CLARITIN) 10 mg tabletIndication s:Allergic Rhinitis Take 1 tablet (10 mg total) by mouth every morning Active blood pressure test kit-large kit blood pressure test kit-large cuff Active latanoprost (XALATAN) 0.005 % ophthalmic solutionIndicati ons:open angle glaucoma Administer 1 drop into both eyes nightly Active albuterol HFA (PROVENTIL HFA,VENTOLIN HFA,PROAIR HFA) 90 mcg/actuation inhaler ProAir HFA 90 mcg/actuation aerosol inhaler INHALE 2 PUFFS EVERY 4-6 HOURS NEEDED PER ASTHMA ACTION PLAN. 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 Take 2 tablet/chew tab (1,000 mg total) by mouth 2 (two) times a day Active fluticasone furoate-vilanter oL (BREO ELLIPTA) 200-25 mcg/dose diskus inhaler 1 puff daily 09/06/19 22 Active finasteride (PROSCAR) 5 mg tablet Take 1 tablet (5 mg total) by mouth daily 08/08/19 22 Active loteprednol (LOTEMAX) 0.5 % ophthalmic suspension INSTILL 1 DROP INTO BOTH EYES TWICE A DAY SHAKE WELL 09/19/19 23 Active lisinopriL (PRINIVIL,ZESTRI L) 40 mg tabletIndication s:hypertension Take 1 tablet (40 mg total) by mouth every morning 100 tablet 3 03/17/19 24 025 Active aspirin 81 mg enteric coated tabletIndication s:prevention of thrombosis TAKE 1 TABLET (81 MG TOTAL) BY MOUTH EVERY MORNING 90 tablet 1 01/28/20 24 026 Active olopatadine (PATANOL) 0.1 % ophthalmic solution instill 1 drop by ophthalmic route 2 times every day into affected eye(s) at an interval of 6 to 8 hours 0 0 06/01/19 16 025 Discontin ued(Thera py completed ) tadalafiL (CIALIS) 20 mg tablet TAKE 1 TABLET BY MOUTH EVERY OTHER DAY NEEDED 07/09/19 23 025 Discontin ued(Alter raghu therapy) Active Problems Problem Noted Date Diagnosed Date Hypercholesteremia 09/18/2021 Bilateral carotid bruits 09/05/2020 PVC's (premature ventricular contractions) 08/30 Pulmonary valve stenosis 08/10/2017 Essential hypertension 08/10/2017 Resolved Problems Problem Noted Date Diagnosed Date Resolved Date Dislocation of finger 01/31/20192021 Osteomyelitis of finger (CMS/HCC) 01/31/2019 09/18/2021 Overview (01/31/2019): Added automatically from request for surgery [id number] Encounters Date Type Department Care Team Description 03/17/2024 11:15 AM FORMULATION CHEMIST Office Visit [facility] [address] [place] [address] Zen Mendes MD Nonrheumatic pulmonary valve stenosis (Primary Dx); Essential hypertension; PVC's (premature ventricular contractions); Hypercholesteremia; Bilateral carotid bruits from Last 3 Months Immunizations Name Administration Dates Next Due Flucelvax Influenza Quad 12/09/2018 Hep A / Hep B 03/26/2015,03/09/2015,03/09/2012 Hep A, Adult 09/28/2015 Influenza, Quadrivalent, Spl it, Preservative Free, Intramuscular 11/08/2017,11/07/2017,11/26/2016,12/04 Influenza, Trivalent, IM (MDV) 12/01/2017,2015 Influenza, Trivalent, Preser vative Free, Intramuscular 11/19/2014 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 Djiboutian Encephalitis IM 05/20/2017,04/05/2017 Pneumococcal Conjugate PCV 13 06/03/2015 Tdap 03/09/2013 Typhoid Live 03/26/2015 Yellow Fever 03/26/2015 ZOSTER LIVE 03/09/2013 ZOSTER Recombinant 04/06/2018 Surgical History Surgery Date Site/Laterality Comments WRIST SURGERY 03/09/2003 - 03/08/2004 Right fracture repair NASAL SEPTUM SURGERY 03/09/1998 - 03/08/1999 EXAMINATION UNDER ANESTHESIA 03/09/2006 - 03/08/2007 HAND SURGERY 12/29/18; 01/01/19 Right I&D ANGIOPLASTY July 1995 Medical History Medical History Date Comments Hypertension Hypertension Heart murmur Irregular heartbeat PVCs Asthma BPH (benign prostatic hyperplasia) 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) Family History Medical History Relation Name Comments Hyperlipidemia Father George Mcdonald Hyperlipide tacho; Other Father George Mcdonald Alive and wel l; COPD Maternal Grandmother Lelia Rose Dementia Mother Dementia; Cancer Paternal Grandfather Rafat Rose Heart attack Paternal Grandfather Rafat Rose Coronary artery disease Paternal Grandmother Sherie Ball ch Coronary artery disease; Stroke Paternal Grandmother Sherie Mcdonald Anesthesia problems Neg Hx Relation Name Status Comments Father George Mcdonald Alive Maternal Grandmother Lelia Rose Mother Paternal Grandfather Rafat Rose Paternal Grandmother Sherie Mcdonald Social History Tobacco Use Types Packs/Day Years Used Date Smoking Tobacco: Never Smokeless Tobacco: Never Tobacco Cessation:Counseling Given: Not Answered Alcohol Use Standard Drinks/Week Comments Yes 0 (1 standard drink = 0.6 oz pur e alcohol) 2/week Sex and Gender Information Value Date Recorded Sex Assigned at Not on file Legal Sex Male 11:29 PM FORMULATION CHEMIST Gender Identity Male 02/16/2019 5:31 PM FORMULATION CHEMIST Sexual Orientation Straight 02/16/2019 5: 31 PM FORMULATION CHEMIST Obstetrics History Last Filed Vital Signs Vital Sign Reading Time Taken Comments Blood Pressure 150/68 03/17/2024 10:47 AM FORMULATION CHEMIST Pulse 87 03/17/2024 10:47 AM FORMULATION CHEMIST Temperature 36.4 ??C (97.5 ??F) 02/11/2019 1 1:40 AM FORMULATION CHEMIST Respiratory Rate 15 02/11/2019 11:4 0 AM FORMULATION CHEMIST Oxygen Saturation 95% 03/17/2024 10: 47 AM FORMULATION CHEMIST Inhaled Oxygen Concentration - - Weight 84.2 kg (185 lb 11.2 oz) 025 10:47 AM FORMULATION CHEMIST Height 180.3 cm (5' 11 ) 03/17/2024 10: 47 AM FORMULATION CHEMIST Body Mass Index 25.9 03/17/2024 10:47 AM FORMULATION CHEMIST Plan of Treatment Health Maintenance Due Date Last Done Comments Colon Cancer Screening-Colonoscopy 1960 Depression Screening 1960 Fall Risk Assessment 1960 Hepatitis C Screening 1960 Prostate Cancer Screening-PSA 1960 Zoster Vaccine (3 of 3) 06/01/2018 04/06/2018, 03/09 Pneumococcal vaccine 65+ (2 of 2 - PPSV23 or PCV20) 2023 06/03/2015 Well Visit 65+ 2023 DTaP/Tdap/Td Vaccine (2 - Td or Tdap) 03/09/2023 03/09/2013 Influenza Vaccine (#1) 2023 3, 12/09/2018, 12/01/2017, Additional history exists Procedures Procedure Name Priority Date/Time Associated Diagnosis Comments POCT LIPID PANEL Routine 03/17/2024 12:5 9 PM FORMULATION CHEMIST Hypercholesteremia from Last 3 Months Results * POCT lipid panel (03/17/2024 12:59 PM FORMULATION CHEMIST) Cholesterol, POC <100 mg/dL Comment:GLU = 149 HDL, POC 17 mg/dL Triglycerides, POC 179 mg/dL LDL Cholesterol POC 47 mg/dL Chol/HDL Ratio, POC N/A Non-HDL Cholesterol, POC N/A mg/dL Cholesterol Total, POC <100 mg/dL Capillary blood 03/17/2024 1 2:59 PM FORMULATION CHEMIST [facility] Saima Mendes MD POINT OF CARE TEST MARCIA BARTLETT Final Result from Last 3 Months Insurance [facility] Care Teams Nut Sifter Relationship Specialty Start Date End Date Beba Torres NP PCP - General Family Medicine 09/05/20
--- OUTSIDE RECORDS SUMMARY | 2024-03-31 21:00 | XMS_ITS | Referral Summary ---
Author Organization [facility] [address] [facility] [address] Address [address] [place] [address] Care Team Providers Care Nuclear Scientist Name Role Phone Beba Torres NP Primary Care Provider [phone] Encounters Date Type Department Care Team Description 03/17/2024 11:15 AM REMOTE BROADCAST TECHNICIAN Office Visit [facility] Cardiology [address] [place] [address] Zen Mendes MD Nonrheumatic pulmonary valve stenosis (Primary Dx); Essential hypertension; PVC's (premature ventricular contractions); Hypercholesteremia; Bilateral carotid bruits from Last 3 Months Allergies Active Allergy Reactions Criticality Noted Date [...] hours as needed for pain Active multivit,Ca,iron -UY-rohpiy-gig [phone] dn-gvo-lye-mcg tabletIndication s:supplement Take 1 tablet by mouth [...] (01/31/2019): Added automatically from request for surgery [id number] Immunizations Name Administration Dates Next Due Flucelvax Influenza Quad 12/09/2018 Hep A / Hep B 03/26/2015,03/09/2015,03/09/2012 Hep A, Adult 09/28/2015 Influenza, Quadrivalent, Spl it, Preservative Free, Intramuscular 11/08/2017,11/07/2017,11/26/2016,12/04 Influenza, Trivalent, IM (MDV) 12/01/2017,2015 Influenza, Trivalent, Preser vative Free, Intramuscular 11/19/2014 Serbian Encephalitis 04/06/2017 Serbian Encephalitis IM 05/20/2017,04/05/2017 Pneumococcal Conjugate PCV 13 06/03/2015 Tdap 03/09/2013 Typhoid Live 03/26/2015 Yellow Fever 03/26/2015 ZOSTER LIVE 03/09/2013 ZOSTER Recombinant 04/06/2018 Social History Tobacco Use Types Packs/Day Years Used Date Smoking Tobacco: Never Smokeless Tobacco: Never Tobacco Cessation:Counseling Given: Not Answered Alcohol Use Standard Drinks/Week Comments Yes 0 (1 standard drink = 0.6 oz pur e alcohol) 2/week Sex and Gender Information Value Date Recorded Sex Assigned at Not on file Legal Sex Male 11:29 PM REMOTE BROADCAST TECHNICIAN Gender Identity Male 02/16/2019 5:31 PM REMOTE BROADCAST TECHNICIAN Sexual Orientation Straight 02/16/2019 5: 31 PM REMOTE BROADCAST TECHNICIAN Last Filed Vital Signs Vital Sign Reading Time Taken Comments Blood Pressure 150/68 03/17/2024 10:47 AM REMOTE BROADCAST TECHNICIAN Pulse 87 03/17/2024 10:47 AM REMOTE BROADCAST TECHNICIAN Temperature 36.4 ??C (97.5 ??F) 02/11/2019 1 1:40 AM REMOTE BROADCAST TECHNICIAN Respiratory Rate 15 02/11/2019 11:4 0 AM REMOTE BROADCAST TECHNICIAN Oxygen Saturation 95% 03/17/2024 10: 47 AM REMOTE BROADCAST TECHNICIAN Inhaled Oxygen Concentration - - Weight 84.2 kg (185 lb 11.2 oz) 025 10:47 AM REMOTE BROADCAST TECHNICIAN Height 180.3 cm (5' 11 ) 03/17/2024 10: 47 AM REMOTE BROADCAST TECHNICIAN Body Mass Index 25.9 03/17/2024 10:47 AM REMOTE BROADCAST TECHNICIAN Plan of Treatment Not on file Procedures Procedure Name Priority Date/Time Associated Diagnosis Comments POCT LIPID PANEL Routine 03/17/2024 12:5 9 PM REMOTE BROADCAST TECHNICIAN Hypercholesteremia from Last 3 Months Results * POCT lipid panel (03/17/2024 12:59 PM REMOTE BROADCAST TECHNICIAN) Cholesterol, POC <100 mg/dL Comment:GLU = 149 HDL, POC 17 mg/dL Triglycerides, POC 179 mg/dL LDL Cholesterol POC 47 mg/dL Chol/HDL Ratio, POC N/A Non-HDL Cholesterol, POC N/A mg/dL Cholesterol Total, POC <100 mg/dL Capillary blood 03/17/2024 1 2:59 PM REMOTE BROADCAST TECHNICIAN [facility] Saima Mendes MD POINT OF CARE TEST MARCIA BARTLETT Final Result from Last 3 Months Insurance [facility] Care Teams Nuclear Scientist Relationship Specialty Start Date End Date Beba Torres NP PCP - General Family Medicine 09/05/20
== END 2024-03-30 12:23 | disposition home or self-care (01) ==
PROVIDERS: PCP Nurse Practitioner Family; Referring Provider Student in an Organized Health Care Education/Training Program; Visit Provider Internal Medicine Gastroenterology
PROC: 0DJD8ZZ Inspection of Lower Intestinal Tract, Via Natural or Artificial Opening Endoscopic (ICD-10-PCS; CPT 45378; principal; 2024-03-30 14:00)
DX: Z12.11 Encounter for screening for malignant neoplasm of colon (principal); D12.4 Benign neoplasm of descending colon; K64.8 Other hemorrhoids; K64.4 Residual hemorrhoidal skin tags; K57.30 Diverticulosis of large intestine without perforation or abscess without bleeding; K62.89 Other specified diseases of anus and rectum; I10 Essential (primary) hypertension; J45.909 Unspecified asthma, uncomplicated; Q22.1 Congenital pulmonary valve stenosis; Z79.82 Long term (current) use of aspirin; Z79.51 Long term (current) use of inhaled steroids; Z98.890 Other specified postprocedural states; Z89.021 Acquired absence of right finger(s); Z87.19 Personal history of other diseases of the digestive system; Z82.49 Family history of ischemic heart disease and other diseases of the circulatory system
CPT/HCPCS: 45385; 88305; J2704; J7120

== ENCOUNTER 2024-11-23 07:39 | Outpatient (CLI) | payer BC, SELFPAY ==
--- NOTE | ~2024-11-23 | XR_ITS ---
EXAMINATION: XR shoulder LT min 2V, 11/23/2024 7:55 CDT HISTORY: S46.012A - Strain of muscle(s) and tendon(s) of the rotat... COMPARISON: No comparisons available. Findings: No acute fracture or malalignment. No significant degenerative changes. Soft tissues unremarkable. Impression: No acute fracture or malalignment. Reviewed, dictated and finalized at location A. Impression: No acute fracture or malalignment.
--- OUTSIDE RECORDS SUMMARY | 2024-11-23 07:53 | XMS_ITS | Encounter Summary ---
Author Organization [facility] Healthcare Address [address] [place] [address] Care Team Providers Care Od Grinder Operator Name Role Phone Beba Torres PRACTICE SUPPORT SPECIALIST Primary Care Provider [phone] Encounter Details Date Type Department Care Team (Late st Contact Info) Description 08/08/2022 Orders Only [facility] Health Information Management [address] [place] [address] Scanning, Provider Social History Tobacco Use Types Packs/Day Years Used Date Smoking Tobacco: Never Smokeless Tobacco: Never Alcohol Use Standard Drinks/Week Comments Yes 0 (1 standard drink = 0.6 oz pur e alcohol) 2/week Sex and Gender Information Value Date Recorded Sex Assigned at Not on file Legal Sex Male 11:29 PM MERCHANDISER RETAIL REPRESENTATIVE Gender Identity Male 02/16/2019 5:31 PM MERCHANDISER RETAIL REPRESENTATIVE Sexual Orientation Straight 02/16/2019 5: 31 PM MERCHANDISER RETAIL REPRESENTATIVE documented as of this encounter Plan of Treatment Not on file documented as of this encounter Procedures Procedure Name Priority Date/Time Associated Diagnosis Comments SCAN - LABS 08/08/2022 documented in this encounter Results * SCAN - LABS (08/08/2022) us Provider Scanning Final Result documented in this encounter Visit Diagnoses Not on filedocumented in this encounter Care Teams Od Grinder Operator Relationship Specialty Start Date End Date Beba Torres NP PCP - General Family Medicine 09/05/20 documented as of this encounter
--- OUTSIDE RECORDS SUMMARY | 2024-11-23 07:53 | XMS_ITS | Clinical Summary ---
Author Organization [facility] [address] Address [address] [place] [address] Care Team Providers Care Truck Dispatcher Name Role Phone Beba Torres NP Primary Care Provider [phone] Allergies Active Allergy Reactions Criticality Noted Date [...] hours as needed for pain Active multivit,Ca,iron -QN-exhwma-mox [phone] el-lgk-ayi-mcg tabletIndication s:supplement Take 1 tablet by mouth [...] by mouth every morning 100 tablet 3 05/17/19 25 026 Active aspirin 81 mg enteric coated tabletIndication s:prevention of thrombosis Take 1 tablet (81 mg total) by mouth every morning 90 tablet 1 07/21/19 25 026 Active Active Problems Problem Noted Date Diagnosed Date Hypercholesteremia 09/18/2021 Bilateral carotid bruits 09/05/2020 PVC's (premature ventricular contractions) 08/30 Pulmonary valve stenosis 08/10/2017 Essential hypertension 08/10/2017 Resolved Problems Problem Noted Date Diagnosed Date Resolved Date Dislocation of finger 01/31/20192021 Osteomyelitis of finger (CMS/HCC) 01/31/2019 09/18/2021 Overview (01/31/2019): Added automatically from request for surgery [id number] Immunizations Immunization Administration Dates Next Due Flucelvax Influenza Quad 12/09/2018 Hep A / Hep B 03/26/2015,03/09/2015,03/09/2012 Hep A, Adult 09/28/2015 Influenza, Quadrivalent, Spl it, Preservative Free, Intramuscular 11/08/2017,11/07/2017,11/26/2016,12/04 Influenza, Trivalent, IM (MDV) 12/01/2017,2015 Influenza, Trivalent, Preser vative Free, Intramuscular 11/19/2014 Swedish Encephalitis 04/06/2017 Swedish Encephalitis IM 05/20/2017,04/05/2017 Pneumococcal Conjugate PCV 13 [...] Dementia Mother Dementia; Cancer Paternal Grandfather Rafat Holmandanielle Heart attack Paternal Grandfather Rafat Holmandanielle Coronary artery disease Paternal Grandmother Sherie Ball Coronary artery disease; Stroke Paternal Grandmother Sherie [...] on file Legal Sex Male 11:29 PM ADJUTANT GENERAL Gender Identity Male 02/16/2019 5:31 PM ADJUTANT GENERAL Sexual Orientation Straight 02/16/2019 5: 31 PM ADJUTANT GENERAL Obstetrics History Last Filed Vital Signs Vital Sign Reading Time Taken Comments Blood Pressure 150/68 03/17/2024 10:47 AM ADJUTANT GENERAL Pulse 87 03/17/2024 10:47 AM ADJUTANT GENERAL Temperature 36.4 C (97.5 F) 02/11/2019 11:40 AM ADJUTANT GENERAL Respiratory Rate 15 02/11/2019 11:4 0 AM ADJUTANT GENERAL Oxygen Saturation 95% 03/17/2024 10: 47 AM ADJUTANT GENERAL Inhaled Oxygen Concentration - - Weight 84.2 kg (185 lb 11.2 oz) 025 10:47 AM ADJUTANT GENERAL Height 180.3 cm (5' 11) 03/17/2024 10: 47 AM ADJUTANT GENERAL Body Mass Index 25.9 03/17/2024 10:47 AM ADJUTANT GENERAL Plan of Treatment Health Maintenance Due Date Last Done Comments Colon Cancer Screening-Colonoscopy 1960 Depression Screening 1958 Fall Risk Assessment 1960 Hepatitis C Screening 1960 Prostate Cancer Screening-PSA 1960 Pneumococcal vaccine 65+ (2 of 2 - PCV20 or PCV21) 06/02/2016 06/03/2015 Zoster Vaccine (3 of 3) 06/01/2018 04/06/2018, 03/09 Well Visit 65+ 2023 DTaP/Tdap/Td Vaccine (2 - Td or Tdap) 03/09/2023 03/09/2013 Influenza Vaccine (#1) 2024 , 12/09/2018, 12/01/2017, Additional history exists Hepatitis B Screening Completed 03/26/2015 , 03/09/2015, 03/09/[address] [facility] [employer] Care Teams Truck Dispatcher Relationship Specialty Start Date End Date Beba Torres NP PCP - General Family Medicine 09/05/20
--- OUTSIDE RECORDS SUMMARY | 2024-11-23 07:53 | XMS_ITS | Patient Health Record ---
Author Organization [facility] [employer] [facility] [place] ([address]) Address [address] [facility] [address] [place] [address] Care Team Providers Care Court Recorder Name Role Phone Vanessa Solomon Primary Care Provider Chanda Arriaga Unavailable [phone] Allergies No Known Allergies Results Component Value [...] 4.91 SpiroPredicted_FEV1 3.77 SpiroPredicted_FEV1_OVER_FVC 76.68 SpiroPredicted_PEF 8.89 Spirometry Reviewed date: Interpretation:Abnormal Performing Lab: Notes/Report: Abnormal SpiroPreBronchodilator_FVC 3.53 SpiroPostBronchodilator_FEF25_75 0 SpiroPreBronchodilator_FEF25_75 2.08 SpiroPreBronchodilator_FEV1 2.67 SpiroPrecentPredictionPost_FEF25_75 0 SpiroPrecentPredictionPost_FEV1 0 SpiroPrecentPredictionPost_FEV1_OVER_FVC 0 SpiroPrecentPredictionPost_FVC 0 SpiroPrecentPredictionPre_FEF25_75 61.9 SpiroPrecentPredictionPre_FEV1 70.8 SpiroPrecentPredictionPre_FEV1_OVER_FVC 98.7 SpiroPrecentPredictionPre_FVC 71.9 SpiroPredicted_FEF25_75 3.36 SpiroPreBronchodilator_FEV1_OVER_FVC 75.71 SpiroPreBronchodilator_PEF 6.52 SpiroPostBronchodilator_FVC 0 SpiroPostBronchodilator_FEV1 0 SpiroPostBronchodilator_FEV1_OVER_FVC 0 SpiroPostBronchodilator_PEF 0 SpiroPredicted_FVC 4.91 SpiroPredicted_FEV1 3.77 SpiroPredicted_FEV1_OVER_FVC 76.68 SpiroPredicted_PEF 8.89 Reason For Referral No Information Medications Medication SIG (Take, Route, Frequency, Duration) Notes Start Date End Date Status Breo Ellipta 200 MCG-25 MCG/INH 1 PUFF(S) INHALED ONCE A DAY; Duration: 90 days Active Albuterol Sulfate HFA 108 (90 Base) MCG/ACT 2 puffs as needed Inhalation every 4 hrs; Duration: 30 days Active OLOPATADINE OPHTHALMIC 0.1% place 1 drop into affected eye(s) twice daily in each affected eye Qday; Duration: 30 days Active Olopatadine HCl 0.1 % place 1 drop into affected eye(s) twice daily in each affected eye Qday; Duration: 30 days Active Triamcinolone Acetonide 0.1 % 1 giovanna applied topically 3 times a day; Duration: 90 days Active Triamcinolone Acetonide 0.1 % 1 application Externally Twice a day; Duration: 30 days Active Lisinopril 20 MG 1 tab(s) orally once a day; Duration: 30 day(s) Active Azelastine HCl 137 MCG/SPRAY 2 sprays in each nostril Nasally Twice a day; Duration: 30 days Active Auvi-Q 0.3 MG/0.3ML 0.3 mg intramuscular ly once; Duration: 1 dose(s) Active Flonase Allergy Relief 50 MCG/ACT 2 spray(s) intranasally once a day; Duration: 90 days Active Claritin 10 MG 1 tab(s) orally once a day Active SIT (TRADITIONAL) variable per schedule SC per schedule Active Immunizations Vaccine Route Administration Date Status Comme nts Influenza Unknown 03/13/2014 Administered Influenza Unknown 11/19/2015 Administered Influenza Unknown 12/01/2017 Administered Flucelvax Unknown 04/09/2019 Administered NOC Flucelevax Quadrivalent Unknown 04/24/2020 Refused Social History Tobacco Use: Social History Observation Description Date Details (start date - stop date) Never Smoker NA - NA Sex Assigned At : Social History Observation Description Sex Assigned At Male Smoking Smart Form: Question Answer Notes Are you a: never smoker Tobacco Control (Standard) Question Answer Notes Tobacco use: Nonsmoker Problems Problem Type SNOMED Code ICD Code Onset Dates Problem Status W/U Status Risk Notes Problem Information temporarily unavailable Other chronic allergic conjunctivitis (H10.45) Active confirmed Problem Information temporarily unavailable Essential (primary) hypertension (I10) Active confirmed Problem Information temporarily unavailable Acute nasopharyngitis [common cold] (J00) Active confirmed Problem Information temporarily unavailable Allergic rhinitis due to pollen (J30.1) Active confirmed Problem Information temporarily unavailable Allergic rhinitis due to animal (cat) (dog) hair and dander (J30.81) Active confirmed Problem Information temporarily unavailable Other allergic rhinitis (J30.89) Active confirmed Problem Information temporarily unavailable Mild persistent asthma, uncomplicated (J45.30) Active confirmed Problem Information temporarily unavailable Unspecified contact dermatitis due to plants, except food (L25.5) Active confirmed Problem Information temporarily unavailable Cough (R05) Active confirmed Problem Information temporarily unavailable Allergic rhinitis due to pollen (J30.1) Active confirmed Problem Information temporarily unavailable Allergic rhinitis due to animal (cat) (dog) hair and dander (J30.81) Active confirmed Problem Information temporarily unavailable Other allergic rhinitis (J30.89) Active confirmed Problem Information temporarily unavailable Other chronic allergic conjunctivitis (H10.45) Active confirmed Problem Information temporarily unavailable Bronchitis, not specified as acute or chronic (J40) Active confirmed Vital Signs Oximetry 98 % 09/20/2024 Blood pressure diastolic 78 mm Hg 09/20/2024 Height 72 in 09/20/2024 Blood pressure systolic 146 mm Hg 09/20/2024 Weight 184.8 lbs 09/20/2024 BMI 25.06 kg/m2 09/20/2024 Encounters Encounter Location Date Provider Diagnosis [facility] [address] [place] [id number] 02/29/2024 Chanda Singh Allergic rhinitis du e to pollen J30.1 ; Allergic rhinitis due to animal (cat) (dog) hair and dander J30.81 ; Other allergic rhinitis J30.89 and Other chronic allergic conjunctivitis H10.45 [facility] [address] [place] [phone] 02/01/2024 Chanda Singh Allergic rhinitis du e to pollen J30.1 ; Allergic rhinitis due to animal (cat) (dog) hair and dander J30.81 ; Other allergic rhinitis J30.89 and Other chronic allergic conjunctivitis H10.45 [facility] [address] [place] [phone] 01/04/2024 Chanda Singh Allergic rhinitis du e to pollen J30.1 ; Allergic rhinitis due to animal (cat) (dog) hair and dander J30.81 ; Other allergic rhinitis J30.89 and Other chronic allergic conjunctivitis H10.45 [facility] [address] [place] [phone] 12/02/2023 Chanda Singh Allergic rhinitis du e to pollen J30.1 ; Allergic rhinitis due to animal (cat) (dog) hair and dander J30.81 ; Other allergic rhinitis J30.89 and Other chronic allergic conjunctivitis H10.45 [facility] [address] [place] [phone] 09/20/2024 Chanda Singh Mild persistent asthma, uncomplicated J45.30 ; Allergic rhinitis due to pollen J30.1 ; Other chronic allergic conjunctivitis H10.45 ; Allergic rhinitis due to animal (cat) (dog) hair and dander J30.81 ; Other allergic rhinitis J30.89 and Unspecified contact dermatitis due to plants, except food L25.5 [facility] [address] [phone] 03/29/2024 Chanda Francisco Mild persistent asthma, uncomplicated J45.30 ; Allergic rhinitis due to pollen J30.1 ; Other chronic allergic conjunctivitis H10.45 ; Allergic rhinitis due to animal (cat) (dog) hair and dander J30.81 ; Other allergic rhinitis J30.89 and Unspecified contact dermatitis due to plants, except food L25.[address] [phone] 06/01/2024 Chanda Francisco Unspecified contact dermatitis due to plants, except food L25.5 [facility] [address] [phone] 06/01/2024 Chanda Francisco Unspecified contact dermatitis due to plants, except food L25.5 Assessments Encounter Date Diagnosis (ICD Code) Assessment Notes Treatment Notes Treatment Clinical Notes Section Notes 12/02/2023 Allergic rhinitis due to pollen (ICD-10 - J30.1) 01/04/2024 Allergic rhinitis due to pollen (ICD-10 - J30.1) 02/01/2024 Allergic rhinitis due to pollen (ICD-10 - J30.1) 02/29/2024 Allergic rhinitis due to pollen (ICD-10 - J30.1) 03/29/2024 Allergic rhinitis due to pollen (ICD-10 [...] discontinue since vials are now complete. 03/29/2024 Mild persistent asthma, uncomplicated (ICD-10 - J45.30) Theo appears to have allergen induced asthma which also flares while sick. ACT 23 and well controlled with Breo outsie of recent flare. Spirometry today is improved from prior spirometry but shows signs of obstruction. Full PFTs 09/2016 showed obstruction and non significant improvement post bronchodilator. Continue Breo and prn albuterol. 06/01/2024 Unspecified contact dermatitis due to plants, except food (ICD-10 - L25.5) 06/01/2024 Unspecified contact dermatitis due to plants, except food (ICD-10 - L25.5) 09/20/2024 Allergic rhinitis due to pollen (ICD-10 - J30.1) Theo clearly suffers from atopic disease based upon history and our prior skin testing. Accordingly, we have introduced a new, aggressive medication regimen, discussed nasal washes and allergy-specific avoidance measures. He has completed over 5 years of immunotherapy and discontinued in 2023. No flares after stopping. 09/20/2024 Mild persistent asthma, uncomplicated (ICD-10 - J45.30) Theo appears to have allergen induced asthma which also flares while sick. ACT 24 and well controlled with Breo. Spirometry today shows FEV! 71% and signs of restriction. Consistent with prior spirometry. Full PFTs 09/2016 showed obstruction and non significant improvement post bronchodilator. Continue Breo and prn albuterol. 09/20/2024 Other chronic allergic conjunctivitis (ICD-10 - H10.45) Given ocular signs and symptoms, I strongly encouraged allergy avoidance measures, medications including intraocular antihistamine/mas t cell stabilizer, PRN 02/29/2024 Allergic rhinitis due to animal (cat) (dog) hair and dander (ICD-10 - J30.81) 03/29/2024 Other chronic allergic conjunctivitis (ICD-10 - H10.45) Given ocular signs and symptoms, I strongly encouraged allergy avoidance measures, medications including intraocular antihistamine/mas t cell stabilizer, PRN 02/01/2024 Allergic rhinitis due to animal (cat) (dog) hair and dander (ICD-10 - J30.81) 01/04/2024 Allergic rhinitis due to animal (cat) (dog) hair and dander (ICD-10 - J30.81) 12/02/2023 Allergic rhinitis due to animal (cat) (dog) hair and dander (ICD-10 - J30.81) 12/02/2023 Other allergic rhinitis (ICD-10 - J30.89) 01/04/2024 Other allergic rhinitis (ICD-10 - J30.89) 02/01/2024 Other allergic rhinitis (ICD-10 - J30.89) 02/29/2024 Other allergic rhinitis (ICD-10 - J30.89) 03/29/2024 Allergic rhinitis due to animal (cat) (dog) hair and dander (ICD-10 - J30.81) 09/20/2024 Allergic rhinitis due to animal (cat) (dog) hair and dander (ICD-10 - J30.81) 09/20/2024 Other allergic rhinitis (ICD-10 - J30.89) 03/29/2024 Other allergic rhinitis (ICD-10 - J30.89) 02/29/2024 Other chronic allergic conjunctivitis (ICD-10 - H10.45) 02/01/2024 Other chronic allergic conjunctivitis (ICD-10 - H10.45) 01/04/2024 Other chronic allergic conjunctivitis (ICD-10 - H10.45) 12/02/2023 Other chronic allergic conjunctivitis (ICD-10 - H10.45) 03/29/2024 Unspecified contact dermatitis due to plants, except food (ICD-10 - L25.5) Theo has a history of frequent poison shandra in the summer due to yard work. Continue prn triamcinolone 09/20/2024 Unspecified contact dermatitis due to plants, except food (ICD-10 - L25.5) Theo has a history of frequent poison shandra in the summer due to yard work. Continue prn triamcinolone 03/29/2024 Other 09/20/2024 Other Plan Of Treatment Next Appt Details Provider Name:Chanda mccarty, 03/21/2025 09:30:00 AM, [address] [facility], [address], [place], [address], Insurance Providers Payer Name Payer Address Payer Phone Subscriber Number Group Number Insured Name Patient Relationship to Insured Coverage Start Date Coverage End Date [facility] [address] [address] [place] [address] [id number] Theo Partida Self - patient is the insured 01/01/202 4 Medical (General) History Medical History History ICD Code Allergic rhinitis due to allergen Chronic allergic conjunctivitis NOS HTN Surgical History Surgery Date(Month/Year) Broken wrist 2003 Sinus Surgery 1992 finger surgery 2014 Hospitalization History Reason Date(Month/Year)
== END 2024-11-23 07:40 | disposition home or self-care (01) ==
PROVIDERS: PCP Nurse Practitioner Family; Visit Provider Orthopaedic Surgery
DX: S46.012A Strain of muscle(s) and tendon(s) of the rotator cuff of left shoulder, initial encounter (principal); X58.XXXA Exposure to other specified factors, initial encounter
CPT/HCPCS: 73030